=== PATIENT | male | born 1985 | race Caucasian/White ===

== ENCOUNTER 2022-01-08 13:43 | Emergency (ER) | payer BC, OTHER ==
[2022-01-08] MEDS ORDERED: Boostrix 0.5 ML (Tdap) VIAL (>/=7 yrs of age) ONE (15:52)
== END 2022-01-08 15:57 | disposition home or self-care (01) ==
LOC: CSHERS 13:43
DX: S00.03XA Contusion of scalp, initial encounter (principal); M79.641 Pain in right hand; W19.XXXA Unspecified fall, initial encounter
CPT/HCPCS: 70450; 72125; 90715